=== PATIENT | female | born 1965 | race African-American/Black ===

== ENCOUNTER 2021-09-02 15:44 | Outpatient (REF) | payer OTHER, SELFPAY ==
--- NOTE | ~2021-09-02 | MM_ITS ---
EXAMINATION: MM SCREENING DIGITAL BREAST TOMOSYNTHESIS, BILATERAL CLINICAL INFORMATION: Screening. Asymptomatic. The lifetime risk of breast cancer based on the Tyrer-Cuzick Model is 13%. COMPARISON: Mammography: 09/01/2016, 08/14/2015, 06/19/2014 TECHNIQUE: Digital breast tomosynthesis is performed in both the craniocaudal and mediolateral oblique views along with computer-aided detection (CAD). Synthesized 2D images are generated from the tomosynthesis. FINDINGS: There are scattered areas of fibroglandular density (ACR BI-RADS breast composition Category b). There are no significant masses, abnormal calcifications, or other abnormalities. There is no developing density. Incidental intramammary node again seen posterior upper outer right breast. The axilla and skin contours are unremarkable. MM/MM tomosynthesis screening BI IMPRESSION: No mammographic evidence of malignancy. ASSESSMENT: BI-RADS 2: Benign RECOMMENDATION: Routine annual mammography screening. This patient's information was entered into a reminder system with a target due date for their next mammogram.
== END 2021-09-02 15:45 | disposition home or self-care (01) ==
LOC: HO.MAMMO 15:44
PROVIDERS: Visit Provider Nurse Practitioner Family
DX: Z12.31 Encounter for screening mammogram for malignant neoplasm of breast (principal)
CPT/HCPCS: 77063; 77067

== ENCOUNTER 2023-04-25 11:13 | Outpatient (REF) | payer OTHER, SELFPAY ==
--- NOTE | ~2023-04-25 | MM_ITS ---
EXAMINATION: MM SCREENING DIGITAL BREAST TOMOSYNTHESIS, BILATERAL CLINICAL INFORMATION: Screening. Asymptomatic. The lifetime risk of breast cancer based on the Tyrer-Cuzick Model is 13%. COMPARISON: Mammography: 09/02/2021, 09/01/2016, 08/14/2015 TECHNIQUE: Digital breast tomosynthesis is performed in both the craniocaudal and mediolateral oblique views along with computer-aided detection (CAD). Synthesized 2D images are generated from the tomosynthesis. FINDINGS: There are scattered areas of fibroglandular density (ACR BI-RADS breast composition Category b). There are no significant masses, abnormal calcifications, or other abnormalities. Parenchymal pattern is similar to prior studies. There is no developing density or architectural abnormality. Intramammary node again seen posterior upper outer right breast. The axilla and skin contours are unremarkable. MM/MM tomosynthesis screening BI IMPRESSION: No mammographic evidence of malignancy. ASSESSMENT: BI-RADS 2: Benign RECOMMENDATION: Routine annual mammography screening. This patient's information was entered into a reminder system with a target due date for their next mammogram.
== END 2023-04-25 11:14 | disposition home or self-care (01) ==
LOC: HO.MAMMO 11:13
DX: Z12.31 Encounter for screening mammogram for malignant neoplasm of breast (principal)
CPT/HCPCS: 77063; 77067

== ENCOUNTER 2024-05-08 15:24 | Outpatient (REF) | payer OTHER, SELFPAY ==
--- NOTE | ~2024-05-08 | MM_ITS ---
EXAMINATION: MM SCREENING DIGITAL BREAST TOMOSYNTHESIS, BILATERAL CLINICAL INFORMATION: Screening. Asymptomatic. COMPARISON: Mammography: This study is compared with prior exams dating back to 2016. TECHNIQUE: Digital breast tomosynthesis is performed in both the craniocaudal and mediolateral oblique views along with computer-aided detection (CAD). Synthesized 2D images are generated from the tomosynthesis. FINDINGS: There are scattered areas of fibroglandular density (ACR BI-RADS breast composition Category b). There are no significant masses, abnormal calcifications, or other abnormalities. MM/MM tomosynthesis screening BI IMPRESSION: No mammographic evidence of malignancy. ASSESSMENT: BI-RADS BI-RADS 1 - Negative RECOMMENDATION: Routine annual mammography screening. 1 year F/U This examination should not preclude the clinical evaluation of a suspicious palpable abnormality. This patient's information was entered into a reminder system with a target due date for their next mammogram.
== END 2024-05-08 15:25 | disposition home or self-care (01) ==
LOC: HO.MAMMO 15:24
PROVIDERS: PCP Nurse Practitioner Family; Visit Provider Nurse Practitioner Family
DX: Z12.31 Encounter for screening mammogram for malignant neoplasm of breast (principal)
CPT/HCPCS: 77063; 77067

== ENCOUNTER → 2024-05-08 16:00 | Outpatient (BNV) | payer OTHER, SELFPAY | PROVIDERS: PCP Nurse Practitioner Family; Visit Provider Radiology Diagnostic Radiology | DX: Z12.31 Encounter for screening mammogram for malignant neoplasm of breast (principal) | CPT/HCPCS: 77063; 77067 ==

== ENCOUNTER 2024-12-19 17:47 | Emergency (ER) | payer BC, SELFPAY ==
[2024-12-19 18:00] VITALS: BP 144/69; PULSE 100; RESP 20; TEMP 37.3; O2SAT 100
--- NOTE | 2024-12-19 18:01 | ED.SYNCOPE ---
HPI - Syncope General Chief Complaint: Syncope Stated Complaint: syncopal episode this morning sent from Time Seen by Provider: 12/20/24 06:29 Source: patient and RN notes reviewed Mode of arrival: ambulatory Limitations: no limitations History of Present Illness ED Provider: Latosha Robert PA-C [facility] narrative: This is a 59-year-old female, with no known medical problems, who presents emergency department with cold-like symptoms for the last 3-4 days. Patient states that over the last 3-4 days she has had headaches, congestion, productive cough. She states that while she was in the shower yesterday morning, she felt dizzy and sat down in the shower. She states that she passed out for several seconds. She did not hit her head. She states that the dizziness resolved after sitting down. She occasionally still gets dizzy upon standing and with positional changes. She denies any chest pain or shortness of breath. No palpitations. She has been taking [id number] cold and flu medications which has provided her with some relief. Denies any recent travel, surgeries or hospitalizations. No other complaints or concerns at this time. MD complaint: loss of consciousness Onset (ago): day(s) -: second(s) Prodromal symptoms: lightheaded Witnessed: No Context: other (In shower) Current symptoms: back to baseline and headache Treatments prior to arrival: none Related Data Allergies Allergy/AdvReac Type Severity Reaction Status Date / Time No Known Allergies Allergy Verified 12/19/24 18:02 Review of Systems Review of Systems: Yes all other systems are reviewed and are negative Constitutional: Constitutional: Reports as per [facility] Past Medical History Medical History (Updated 12/20/24 @ 09:44 by RADHA Marques) No known health problems Social History Social History Smoked in Last 30 Days: No Use of substances other than those prescribed or required for medical reasons: No Advance Directives: No Advance Directives Information Provided: Yes Do you have a plan to hurt others: No Plan Physical Exam Vital Signs: Vital Signs: Last Vital Signs Temp 98.4 F 12/20/24 09:14 Pulse 71 12/20/24 09:14 Resp 16 12/20/24 09:14 BP 112/63 12/20/24 09:14 Pulse Ox 99 12/20/24 09:14 O2 Del Method Room Air 12/20/24 09:14 BMI result Body Mass Index 30.0 Const: General: cooperative, comfortable and no acute distress Orientation/consciousness: patient oriented x3 Limitations: no limitations HEENT: Head: Yes normal to inspection, Yes normocephalic and Yes atraumatic Ears: hearing grossly normal bilaterally General nose exam: Normal external nose present Face and sinus: Yes normal facial exam Mouth: Normal oral and palatal mucosa present, oropharynx normal and moist mucous membranes Throat: Yes posterior oropharynx normal Eyes: General: appearance normal, both eyes and all related structures Eyelids: Yes eyelids normal Conjunctivae: conjunctivae normal Sclerae: sclerae normal Pupils: Equal, round and reactive pupils present EOM: EOMs intact bilaterally Neck: Neck: Yes normal visual inspection, Yes full ROM and Yes no lymphadenopathy Lymphatic: no lymphadenopathy noted Chest: Chest palpation & inspection: normal inspection of the chest Resp: Effort & Inspection: normal respiratory effort and able to speak in complete sentences Auscultation: clear to auscultation bilaterally, no crackles, no rales, no rhonchi and no wheezes Cardio: Rate: regular rate Rhythm: regular rhythm Heart sounds: S1 normal heart sound present and S2 normal heart sound present GI: Inspection: Yes normal to inspection Skin: General skin exam: no rashes or lesions noted Trauma: no lacerations or abrasions Wounds: no wounds Neuro: General: patient oriented x3 and moves all extremities Cranial nerves: Yes CN's II-XII intact bilaterally and Yes Equal, round and reactive pupils present Cognition (Neuro): normal cognition Gait exam (Neuro): Normal gait present Motor exam (neuro): 5/5 motor strength present throughout and Pronator motor function not present Coordination: [id number] test normal and mfaf-ll-[id number] test normal Romberg Test: Positive Extrem: General: Yes normal to inspection Right upper extremity: normal to inspection Left upper extremity: normal to inspection Right lower extremity: normal to inspection Left lower extremity: normal to inspection Course Course Course Narrative: This is a Rapid Medical Exam performed in triage by Chloé Patel PA-C. Full HPI, ROS and PE to be performed by primary ED provider. 59 yo F presenting to the ED c/o lightheadedness this AM while in the shower w/+LOC, denies head trauma. +URI sx x a few days. denies AC use. +admits to mild AHUJA. denies CP/SOB PE: ambulating w/steady gait, nontoxic appearing, no focal neuro deficits Plan: EKG, labs, UA, Viral testing, orthostatics Reevaluation(s) Reevaluation #1: Patient received 2 L of lactated Ringer's. Orthostatic vital signs repeated, improved. Patient re-evaluated, feeling much better. Patient's symptoms likely secondary to vasovagal syncope secondary to flu and dehydration. She has no cardiac risk factors. Her overall workup today was reassuring. I discussed case with my attending physician, Dr. Saravia. Discussed strict return precautions. She was out of the window for Tamiflu. Encouraged DE and drink plenty, and follow-up with PCP as needed. Given strict return precautions. She understands and agrees with plan. Patient stable for discharge. Time: 09:32 Medications Administered Discontinued Medications Generic Name Dose Route Start Last Admin Trade Name Freq PRN Reason Stop Dose Admin Acetaminophen 1,000 mg in 100 mls @ 400 mls/hr 12/20/24 06:43 12/20/24 07:42 Ofirmev IV 12/20/24 06:57 Infused ONCE ONE Infusion Lactated Ringer's 2,000 mls @ 1,000 mls/hr 12/20/24 07:07 12/20/24 07:27 Lr IV 12/20/24 09:06 1,000 mls/hr .Q2H ONE Administration Medical Decision Making Medical Decision Making [facility] Narrative: This is a 59-year-old female, with no known medical problems, who presents emergency department with complaints of cold-like symptoms and syncopal episode in the shower yesterday morning. Patient initially presented on 10/18/2025 at 6:00 p.m. however was not seen until 12/20/2024 at 6:45 a.m. due to prolonged wait times in the emergency department. On initial arrival, patient was hypertensive at 144/69, afebrile. Labs were performed prior, she has no leukocytosis, stable H&H, chemistry with no significant electrolyte derangements. Negative initial troponin. Patient tested positive for influenza A. EKG normal sinus rhythm at a ventricular rate of 94 beats per minute, no ST elevation or depression. Orthostatic vital signs were performed, she was borderline orthostatic, which is likely the source of her syncopal episode which she had in the shower. The warmth of the shower as well as being slightly dehydrated so likely the source of this vasovagal response. Will medicate with 2 L of IV fluids as well as Tylenol to treat for mild headache. We will repeat orthostatic vitals, and reassess after administering these. Will also repeat troponin. She has no chest pain or shortness of breath. No palpitations. Differential Diagnosis Differential Diagnoses: The differential diagnosis associated with the presentation includes Influenza, RSV, COVID, electrolyte derangement, ACS-unlikely, vasovagal syncope, orthostatic hypotension Lab Data MDM Lab Attestation statement: I reviewed the patient's lab results. 12/19/24 18:16 12/19/24 18:16 Labs: Lab Results 12/19/24 12/20/24 Range/Units 18:16 06:56 WBC 5.7 (4.8-10.8) X10*3/uL RBC 4.41 (4.20-5.50) X10*6/uL Hgb 13.0 (12.0-16.0) g/dl Hct 40.2 (37.0-47.0) % MCV 91.2 (80.0-98.0) fL MCH 29.5 (27.0-33.0) pg MCHC 32.3 (31.0-35.0) g/dl RDW 14.6 (11.0-16.0) % Plt Count 272 (160-400) X10*3/uL MPV 9.7 (9.4-12.3) fL Immature Gran % (Auto) 0.2 (0.0-0.4) % Neut % (Auto) 61.4 (45-73) % Lymph % (Auto) 29.2 (20-40) % Smyth % (Auto) 8.3 (2-11) % Eos % (Auto) 0.5 (0-4) % Baso % (Auto) 0.4 (0-2) % Lymph # (Auto) 1.7 (1.2-4.9) X10*3/uL Smyth # (Auto) 0.5 (0.1-1.2) X10*3/uL Eos # (Auto) 0.0 (0.0-0.4) X10*3/uL Baso # (Auto) 0.0 (0.0-0.2) X10*3/uL Abs Immat Gran (auto) 0.01 (0.00-0.03) X10*3/uL Absolute Neuts (auto) 3.5 (2.0-8.3) x10*3/uL Absolute Nucleated RBC 0.000 (0.0-0.012) X10*3/uL Nucleated RBC % (auto) 0.0 (0.0-0.2) /100WBC Sodium 139 (135-145) mmol/L Potassium 3.6 (3.3-5.1) mmol/L Chloride 105 (96-108) mmol/L Carbon Dioxide 26 (22-29) mmol/L Anion Gap 12 (12-20) BUN 12 (9-16) mg/dL Creatinine 0.87 (0.5-1.4) mg/dL Estim Creat Clear Calc 80.7 Estimated GFR > 60 Random Glucose 128 H (60-115) mg/dL Calcium 8.7 (8.4-10.2) mg/dL Magnesium 2.4 (1.6-2.6) mg/dL Total Bilirubin 0.4 (0.0-1.0) mg/dL Direct Bilirubin 0.1 (0.0-0.5) mg/dL AST 31 (5-31) U/L ALT 16 (0-31) U/L Alkaline Phosphatase 50 (39-117) U/L Troponin I High Sens < 2.7 < 2.7 (<3.5-17.0) ng/L Total Protein 8.3 H (6.5-8.0) g/dL Albumin 4.4 (3.5-5.0) g/dL Influenza Type A (PCR) POSITIVE A (Negative) Influenza Type B (PCR) NEGATIVE (Negative) RSV RNA Qual (PCR) NEGATIVE (Negative) SARS-CoV-2 RNA (RT-PCR) NEGATIVE (Negative) Independent Interpretation I performed an independent interpretation of an: EKG Interpretation: Normal sinus rhythm with a ventricular rate of 94 beats per minute, QT QTC 334/417, no ST elevation or depression. Discharge Plan Discharge Clinical Impression: Influenza A, Vasovagal syncope, Syncope due to orthostatic hypotension Patient Disposition: Home, Self-Care Instructions: Syncope (ED), Influenza (ED) Additional Instructions: You were seen in the emergency department today and tested positive for influenza A. Please drink plenty of fluids get plenty of rest. Continue eating small meals throughout the day. Your EKG was reassuring. Your blood work was reassuring. You likely lost consciousness secondary to dehydration, and the flu. It is very important that you prior ties eating and drinking, getting plenty of rest. Please follow-up with your primary care physician regarding this visit. Alternate between ibuprofen and or Tylenol as needed for pain and symptoms. If any new or worsening symptoms occur including but not limited to severe chest pain, shortness of breath, please seek emergent care. Stand Alone Forms: Work/School Release Print Language: Kiswahili
--- NOTE | 2024-12-19 18:03 | ECG_ITS ---
Test Reason : SYNCOPE Blood Pressure : */* mmHG Vent. Rate : 94 BPM Atrial Rate : 94 BPM P-R Int : 142 ms QRS Dur : 74 ms QT Int : 334 ms P-R-T Axes : 74 -1 44 degrees QTcB Int : 417 ms Normal sinus rhythm Normal ECG When compared with ECG of 03-May-2013 11:28, No significant change was found Referred By: Chloé Patel Electronically Signed By: ISAC WHITE MD
[2024-12-19 18:20] LABS: MANUAL DIFF FLAG NO
[2024-12-19 18:21] LABS: Basophils Percent Auto 0.4 % (0-2); Eosinophils Percent Auto 0.5 % (0-4); Hematocrit 40.2 % (37.0-47.0); Imm Gran Abs Auto 0.01 X10*3/uL (0.00-0.03); Imm Gran Pct Auto 0.2 % (0.0-0.4); Lymphocytes Absolute Auto 1.7 X10*3/uL (1.2-4.9); Lymphocytes Percent Auto 29.2 % (20-40); Mean Corpuscular HGB Conc 32.3 g/dl (31.0-35.0); Mean Corpuscular Hemoglobin 29.5 pg (27.0-33.0); Mean Corpuscular Volume 91.2 fL (80.0-98.0); Mean Platelet Volume 9.7 fL (9.4-12.3); Monocytes Absolute Auto 0.5 X10*3/uL (0.1-1.2); Monocytes Percent Auto 8.3 % (2-11); Neutrophils Absolute Auto 3.5 x10*3/uL (2.0-8.3); Neutrophils Percent Auto 61.4 % (45-73); Platelet Count 272 X10*3/uL (160-400); Red Blood Count 4.41 X10*6/uL (4.20-5.50); Red Cell Distribution Width 14.6 % (11.0-16.0); White Blood Count 5.7 X10*3/uL (4.8-10.8)
[2024-12-19 18:46] LABS: Alanine Aminotransferase 16 U/L (0-31); Albumin Level 4.4 g/dL (3.5-5.0); Alkaline Phosphatase 50 U/L (39-117); Anion Gap 12 (12-20); Aspartate Amino Transferase 31 U/L (5-31); Bilirubin Direct 0.1 mg/dL (0.0-0.5); Bilirubin Total 0.4 mg/dL (0.0-1.0); Blood Urea Nitrogen 12 mg/dL (9-16); Calcium 8.7 mg/dL (8.4-10.2); Carbon Dioxide 26 mmol/L (22-29); Chloride 105 mmol/L (96-108); Creatinine Clr Calc Pharmacy 80.7; Estimated Glomerular Filt Rate > 60; Glucose Random 128 mg/dL (60-115); Magnesium 2.4 mg/dL (1.6-2.6); Potassium 3.6 mmol/L (3.3-5.1); Sodium 139 mmol/L (135-145); Total Protein 8.3 g/dL (6.5-8.0)
[2024-12-19 18:54] LABS: Troponin-I High Sensitivity < 2.7 ng/L (<3.5-17.0)
[2024-12-19 18:58] LABS: Influenza A PCR POSITIVE (Negative); Influenza B PCR NEGATIVE (Negative); Resp Syncy Virus RNA Qual PCR NEGATIVE (Negative); SARS COV2 PCR INHOUSE NEGATIVE (Negative)
[2024-12-20] VITALS (9 sets, daily range): BP systolic 108–137; BP diastolic 49–64; PULSE 71–87; RESP 16–20; TEMP 36.9–37.5; O2SAT 98–99
[2024-12-20] MEDS: Acetaminophen 1,000 MG/100 ML PIGGYBACK 400 MG IV (07:27)
[2024-12-20] MEDS: Lactated Ringers 2,000 ML 1000 ML IV (07:27)
--- NOTE | 2024-12-20 07:32 | PC.NURSE ---
Pt medicated per MAR, given warm blankets per request.
[2024-12-20 07:42] LABS: Troponin-I High Sensitivity < 2.7 ng/L (<3.5-17.0)
[2024-12-20 09:37] LABS: Appearance Urine Clear; Color Urine Yellow; Glucose Urine UA Negative (Negative); Leukocyte Esterase Urine Small (1+) (Negative); Nitrite Urine Negative (Negative); Specific Gravity - Urine 1.015 (1.005-1.025); UMIC TRIGGER UACC YES; Urine Blood Negative (Negative); Urine Ketones 15 mg/dL (Negative); Urine Protein Negative (Neg-Trace)
[2024-12-20 09:39] LABS: Bacteria Urine None Seen (None Seen); Hyaline Casts Urine 0-2 /LPF (0-2); RBC Urine 0-2 /HPF (0-2); Squamous Epithelial Cell Urine 0-2 /HPF (0-2); UACC Culture Trigger YES
== END 2024-12-20 09:55 | disposition home or self-care (01) ==
PROVIDERS: Physician Assistant; Physician Assistant Medical; Emergency Provider Emergency Medicine Emergency Medical Services; PCP Internal Medicine
DX: J10.1 Influenza due to other identified influenza virus with other respiratory manifestations (principal); R55 Syncope and collapse; R05.9 Cough, unspecified; I95.9 Hypotension, unspecified; R11.2 Nausea with vomiting, unspecified; R51.9 Headache, unspecified; Z79.899 Other long term (current) drug therapy; Z03.818 Encounter for observation for suspected exposure to other biological agents ruled out
CPT/HCPCS: 0241U; 36415; 80048; 80076; 81001; 83735; 84484; 85025; 87086; 93005; 96361; 96374; 99284; 99285; J0131; J7120

== ENCOUNTER → 2024-12-19 18:03 | Outpatient (BNV) | payer BC, SELFPAY | PROVIDERS: Emergency Provider Emergency Medicine Emergency Medical Services; PCP Internal Medicine; Visit Provider Internal Medicine Cardiovascular Disease | DX: R55 Syncope and collapse (principal) | CPT/HCPCS: 93010 ==

== ENCOUNTER 2025-04-06 14:24 | Emergency (ER) | payer SELFPAY ==
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
[2025-04-06 14:29] VITALS: BP 176/102; PULSE 94; RESP 18; TEMP 36.1; O2SAT 100; BMI 38.7
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
[2025-04-06] MEDS: Acetaminophen 325 MG TABLET 975 MG PO (15:19)
[2025-04-06] MEDS: Tetracaine HCl/PF 0.5% Oph Sol 4 ML DROPS 1 DROP EYE-LEFT (15:38)
[2025-04-06] MEDS: Fluorescein Sodium STRIP 1 STRIP EYE-LEFT (15:38)
[2025-04-06] MEDS: Erythromycin Base 0.5% Oph Oin 1 GM TUBE 1 CM EYE-LEFT (15:58)
[2025-04-06 16:38] VITALS: BP 176/102; PULSE 94; RESP 18; TEMP 36.1; O2SAT 100
== END 2025-04-06 16:39 | disposition home or self-care (01) ==
PROVIDERS: Emergency Provider Emergency Medicine; PCP Internal Medicine
DX: S05.02XA Injury of conjunctiva and corneal abrasion without foreign body, left eye, initial encounter (principal); V47.5XXA Car driver injured in collision with fixed or stationary object in traffic accident, initial encounter; H53.8 Other visual disturbances; Y93.89 Activity, other specified; Y92.414 Local residential or business street as the place of occurrence of the external cause; Y99.9 Unspecified external cause status
CPT/HCPCS: 73130; 99283; 99284

== ENCOUNTER → 2025-04-06 14:54 | Outpatient (BNV) | payer BC, SELFPAY | PROVIDERS: Emergency Provider Emergency Medicine; PCP Internal Medicine; Visit Provider Radiology Diagnostic Radiology | DX: M79.642 Pain in left hand (principal); V89.2XXA Person injured in unspecified motor-vehicle accident, traffic, initial encounter | CPT/HCPCS: 73130 ==

== ENCOUNTER 2025-05-14 15:54 | Outpatient (REF) | payer BC, SELFPAY | END 2025-05-14 15:55 | disposition home or self-care (01) | LOC: HO.MAMMO 15:54 | PROVIDERS: PCP Internal Medicine; Visit Provider Nurse Practitioner Family | DX: Z12.31 Encounter for screening mammogram for malignant neoplasm of breast (principal) | CPT/HCPCS: 77063; 77067 ==

== ENCOUNTER → 2025-05-14 16:00 | Outpatient (BNV) | payer BC, SELFPAY | PROVIDERS: PCP Internal Medicine; Visit Provider Internal Medicine | DX: Z12.31 Encounter for screening mammogram for malignant neoplasm of breast (principal) | CPT/HCPCS: 77063; 77067 ==

== ENCOUNTER 2025-10-25 15:39 | Outpatient (AMB) | payer BC, SELFPAY ==
--- OUTSIDE RECORDS SUMMARY | 2025-10-02 03:30 | XMS_ITS ---
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 No Tobacco Control (Standard) Question Answer Notes Tobacco use: Nonsmoker Additional Findings: Tobacco non-user Current no nsmoker Encounters Encounter Location Date Provider Diagnosis [address] [address] 10/02/2025 Trinidad Contreras Plan Of Treatment No Information Progress Notes * Rayna ELISELisbethB: 9[birth year] (60 yo F)Acc No.[id number]:10/02/2025 Progress Notes Patient: Dior RAI Provider: Ruth Contreras DPM :1965 A ge:59 Y S ex:Female Date:10/02/2025 Address:[address] [place], [place] [id number] Pcp:Bev Baer Subjective: * Chief Complaints: * 1 . Seen Sooner. * ROS: G eneral/Constitutional: Nausea d enies. V omiting d enies. H hans Thirst d enies. L oss appetite d enies. C hills d enies. F atigue d enies.?Fever d enies. N ight Sweats d enies. U nexplained weight loss d enies. U nexplained weight gain d enies. H EENTM: Dentures d enies. D izziness d enies. G lasses/contacts d enies. R etinopathy d enies. B lurred/double vision d enies. T MJ?denies. D ischarge/drainage d enies. I mplants d enies. S ore throat d enies. D ental implants d enies. H [place] of hearing d enies. D ifficulty chewing/swallowing/speaking d enies. N ose bleeds d enies. S ore mouth d enies. ? R espiratory: On Oxygen d enies. P neumonia/pleurisy d enies.?Bronchitis d enies. E mphysema d enies. C oughing d enies. C ough blood?denies. S hortness of breath d enies. W heezing d enies. C ardiovascular: Pacemaker d enies. 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 W PW d enies. C HF d enies. H eart attack d enies. S eptal defect d enies. R apid beat d enies. C hest pain d enies. A trial Fib. d enies. M urmur/Palpitations d enies. G astrointestinal: Hemorrhoids d enies. S tomach/Abdominal pain d enies. D ark blood stool d enies. I rritable bowel d enies. C onstipation d enies. D iarrhea d enies. H ematology: Swelling d enies. C lots d enies. V aricose Veins d enies. B ruising d enies. B leeding problem d enies. G enitourinary: Blood urine d enies. F requent/Painfu/urination/bladder control d enies. K idney stones d enies. I nfection (UTI) d enies. N ephropathy d enies. s ex trans dis (STD) d enies. P rostate d enies. M usculoskeletal: Hammertoes d enies. B unions d enies. B ack Pain d enies. M uscle Cramps/ Resting d enies. M uscle cramps / walking d enies.?Generalized aches and pains d enies. W eakness d enies. I nteg.: Clarke d enies. S cars d enies. C orns/calluses?denies. I ngrown nails d enies. P ainful nails d enies. O pen Sores d enies. R ashes d enies. N eurologic: Difficulty sleeping d enies. B rain disorder d enies. N umbness d enies. B alance trouble d enies. C onfusion d enies. F ainting/blackouts d enies. T ingling d enies. T remors d enies. * Medical History: * Family History: M other: alive, diagnosed with Diabetic - NIDDM, Unspecified essential hypertension. F ather: . M aternal Grand Mother: Foot problems. * Social History: T obacco Use: T obacco use other than smoking A re you an other tobacco user? N o Tobacco Control (Standard) T obacco use: N onsmoker A dditional Findings: Tobacco non-user C urrent nonsmoker M iscellaneous: C affeine: no. Children: yes, 2. Marital status: . 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 Objective: * Vitals: Assessment: Plan: * Treatment: * Images: * The named appointment provid er may or may not be the originator of this progress note, and it is not deemed complete until electronically signed by the appointment provider. Sign off status: Pending * Provider: Ruth Contreras DPM Date: 12/02/2024 Generated for Adwoa zepeda/Nehemiah/Garett on: 12/26/2024 04:37 PM EST
--- NOTE | 2025-10-25 15:41 | A.OFFPC_ITS ---
Vital Signs 10/25/25 15:44 Height 5 ft Weight 191 lb BMI 37.3 BP 138/84 Blood Pressure Location Rt brachial Position Sitting Respiration 14 Pulse 67 Pulse Source Pulse Oximeter Temp 98.1 F Temp Source Oral Pulse Oximetry (%) 100 Oxygen Delivery Method Room Air Intake Visit Reasons: [facility] Surgery on 11/20 Intake Note: New patient visit Channel Opener Required: No Allergies No Known Allergies Allergy (Verified 10/25/25 15:41) Tobacco use date assessed: 10/25/25 Dental Screening Dental Screen Date: 10/25/25 Did you have a dental visit in the last 12 months?: Yes Did you have a dental problem in the last 6 months where you did not have access to dental care?: No Was dental information given to patient?: Patient has dentist HPI HPI Comments History of Present Illness Details 60 year old female with a past medical h istory of presenting to the [facility]. She is transferring from Dr Jignesh Carr History of endometrial cancer. s/p hysterectomy Aug 19 with Bev [place]. Started chemotherapy yesterday. Going 7th for port. Will get XRT. 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 Cologuard ordered. ROS CONSTITUTIONAL: Denies weight loss, fever and chills. HEENT: Denies changes in vision and hearing. RESPIRATORY: Denies SOB and cough. CV: Denies palpitations and CP GI: Denies abdominal pain, nausea, vomiting and diarrhea. : Denies dysuria and urinary frequency. MSK: Denies new myalgia and joint pain. SKIN: Denies rash and pruritus. NEUROLOGICAL: Denies headache PSYCHIATRIC: see HPI PHYSICAL EXAM: GENERAL: Alert and oriented x 3. NAD EYES: EOMI. Anicteric. HENT: Moist mucous membranes. No scleral icterus. No cervical lymphadenopathy. LUNGS: Clear to auscultation bilaterally. CARDIOVASCULAR: Regular rate and rhythm. No murmur. No JVD. ABDOMEN: Soft, non-tender +bs EXTREMITIES: No edema. Non-tender. SKIN: No rashes or lesions. Warm. NEUROLOGIC: No focal neurological deficits. CN II-XII grossly intact PSYCHIATRIC: Cooperative. 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 1. Little interest or pleasure in doing things: not at all 2. Feeling down, depressed, or hopeless: several days 3. Trouble falling or staying asleep, or sleeping too much: several days 4. Feeling tired or having little energy: several days 5. Poor appetite or overeating: several days 6. Feeling bad about yourself - or that you are a failure or have let yourself or your family down: not at all 7. Trouble concentrating on things, such as reading the newspaper or watching television: not at all 8. Moving or speaking so slowly that other people could have noticed. Or the opposite - being so fidgety or restless that you have been moving around a lot more than usual: not at all 9. Thoughts that you would be better off or of hurting yourself in some way: not at all Total score: 4 Source: Developed by Drs. Kushal Bowles, Shanti Herbert, Pablo Méndez and colleagues, with an educational mary from [employer]. Thrive Questionnaire Date Thrive assessed: 08/23/25 I am a: Patient What is your living situation today?: I have a steady place to live Within the past 12 months, did the food you bought not last and you didn't have the money to get more?: I choose not to answer this question Within the past 12 months, did you worry whether your food would run out before you got money to buy more?: I choose not to answer this question Do you have trouble paying for medicines?: I choose not to answer this question Do you have trouble getting transportation to medical appointments?: I choose not to answer this question Do you have trouble paying your heating and electricity bill?: I choose not to answer this question Do you have trouble taking care of your child, family member or friend?: I choose not to answer this question Do you have trouble with day-to-day activities such as bathing, preparing meals, shopping, managing finances, etc.?: I choose not to answer this question Are you currently unemployed and looking for a job?: No Are you interested in more education?: I choose not to answer this question Currently or been in a relationship where the following occur: No concerns reported THRIVE Score: 0 AUDIT C Alcohol Use Questionnaire (AUDIT-C) 1. How often do you have a drink containing alcohol?: 2-4 times a month 2. How many drinks containing alcohol do you have on a typical day when you are drinking?: 1 or 2 3. How often do you have six or more drinks on one occasion?: Never Total Score: 2 Physical exam (Primary Care) Vital Signs: Last Vital Signs Temp 98.1 F 10/25/25 15:44 Pulse 67 10/25/25 15:44 Resp 14 10/25/25 15:44 BP 138/84 10/25/25 15:44 Pulse Ox 100 10/25/25 15:44 Oxygen Delivery Method Room Air 10/25/25 15:44 BMI result Body Mass Index 37.3 Tobacco/Smoking Status: Tobacco use Status Tobacco use date assessed 10/25/25 10/25/25 15:47 Patient Tobacco Use Status Never used Tobacco 10/25/25 15:47 e-Cigarette/Vaping Use Never Used 10/25/25 15:47 PHQ-9: PHQ-9 Score PHQ-9: Total score 4 10/25/25 15:47 Thrive Assessment: Date of Thrive Assessment Date Thrive assessed 08/23/25 10/25/25 15:47 Currently or been in a relationship where the following occur: No concerns reported Coding Level of Care Code New Pt Level 4 (99211) Diagnoses Encounter to establish care Z76.89 Endometrial cancer C54.1 Elevated glucose R73.09 Assessment & Plan Assessment & Plan (1) Encounter to establish care: Code(s): Z76.89 - Persons encountering health services in other specified circumstances (2) Endometrial cancer: Code(s): C54.1 - Malignant neoplasm of endometrium Category: Medical (3) Elevated glucose: Code(s): R73.09 - Other abnormal glucose Category: Medical Plan 60 year old female presenting to the [facility] Past medical, surgical, social history reviewed Endometrial cancer-continue follow up Insomnia/anxiety-given recent cancer diagnosis. Sparing prn ativan qhs Elevated glucose-labs ordered Orders: Orders Hemoglobin A1c 10/25/25 R73.09 - Other abnormal glucose, Z01.818 - Encounter for other preprocedural examination Comprehensive Met. Panel 10/25/25 R73.09 - Other abnormal glucose, Z01.818 - Encounter for other preprocedural examination LDL Cholesterol Direct 10/25/25 R73.09 - Other abnormal glucose, Z01.818 - Encounter for other preprocedural examination Prothrombin Time INR 10/25/25 R73.09 - Other abnormal glucose, Z01.818 - Encounter for other preprocedural examination MM tomosynthesis screening BI 7 Months Z12.31 - Encounter for screening mammogram for malignant neoplasm of breast Complete Blood Count Auto Diff 10/25/25 R73.09 - Other abnormal glucose, Z01.818 - Encounter for other preprocedural examination Partial Thromboplastin Time 10/25/25 R73.09 - Other abnormal glucose, Z01.818 - Encounter for other preprocedural examination Medications: New lorazepam (Ativan) 1 mg PO BEDTIME PRN 20 tabs 0RF anxiety/insomnia Discontinued erythromycin Discontinued Reason: Patient no longer taking 0.5 inches ophthalmic (eye) QID 5 days 50 grams 0RF ketorolac 0.5% Discontinued Reason: Stopped on Transfer 1 drp ophthalmic (eye) QID 5 mL 0RF
[2025-10-25 15:44] VITALS: BP 138/84; PULSE 67; RESP 14; TEMP 36.7; O2SAT 100; BMI 37.3
--- OUTSIDE RECORDS SUMMARY | 2025-10-25 16:38 | XMS_ITS | Patient Health Record ---
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 No Tobacco Control (Standard) Question Answer Notes Tobacco use: Nonsmoker Additional Findings: Tobacco non-user Current no nsmoker Problems Problem Type SNOMED Code ICD Code Onset Dates Problem Status W/U Status Risk Notes Problem Acquired hallux valgus (37231377) Hallux valgus (acquired), left foot (M20.12) Active confirmed Problem Acquired hallux valgus (12997546) Hallux valgus (acquired), right foot (M20.11) Active confirmed Problem Acquired hammer toe of right foot (3987753107517164) Other hammer toe(s) (acquired), right foot (M20.41) Active confirmed Problem Mononeuropathy of lower limb (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) Neuritis of right foot (G57.91) Active confirmed Problem Localized, primary osteoarthritis of the ankle and/or foot (958496862) Arthritis of joint of lesser toe, right (M19.071) Active confirmed Vital Signs Blood pressure diastolic 70 mm Hg 07/18/2025 Height 5ft 7in in 07/18/2025 Blood pressure systolic 120 mm Hg 07/18/2025 Weight 195 lbs 07/18/2025 BMI 30.54 kg/m2 07/18/2025 Encounters Encounter Location Date Provider Diagnosis [address] [address] 07/18/2025 Mehreen Harrison Hallux valgus (acqui red), left foot M20.12 ; Hallux valgus (acquired), right foot M20.11 ; Pain in right ankle and joints of right foot M25.571 ; Pain in right toe(s) M79.674 ; Other hammer toe(s) (acquired), right foot M20.41 ; Subluxation of metatarsophalangeal joint of toe, initial encounter S93.149A and Neuritis of right foot G57.[address] [address] 07/18/2025 [facility] [address] [address] 09/06/2025 Mehreen Harrison Assessments Encounter Date Diagnosis (ICD Code) Assessment Notes Treatment Notes Treatment Clinical Notes Section Notes 07/18/2025 Hallux valgus (acquired), left foot (ICD-10 - M20.12) 07/18/2025 Hallux valgus (acquired), right foot (ICD-10 - M20.11) 07/18/2025 Pain in right ankle and joints of right foot (ICD-10 - M25.571) 07/18/2025 Pain in right toe(s) (ICD-10 - M79.674) 07/18/2025 Other hammer toe(s) (acquired), right foot (ICD-10 - M20.41) 07/18/2025 Subluxation of metatarsophalangeal joint of toe, initial encounter (ICD-10 - S93.149A) 07/18/2025 Neuritis of right fo ot (ICD-10 - G57.91) Plan Of Treatment Pending Test Test Name Order Date X ray : Foot, left 3V 07/18/2025 X ray : Foot, right 3V 07/18/2025 Insurance Providers Payer Name Payer Address Payer Phone Subscriber Number Group Number Insured Name Patient Relationship to Insured Coverage Start Date Coverage End Date [facility] [address] [place] [address] [id number] Dior Elise Self - patient is the insured Medical (General) History Surgical History Surgery Date(Month/Year) foot surgery
== END 2025-10-25 16:17 | disposition home or self-care (01) ==
PROVIDERS: PCP Internal Medicine; Visit Provider Internal Medicine
DX: Z76.89 Persons encountering health services in other specified circumstances (principal); C54.1 Malignant neoplasm of endometrium; R73.09 Other abnormal glucose